=== PATIENT | female | born 1965 | race Caucasian/White ===

== ENCOUNTER 2017-09-28 06:06 | Emergency (ER) | payer OTHER ==
[~2017-09-28] VITALS: Ht 167.6 cm; Wt 108.1 kg
[~2017-09-28 06:06] MED LIST: ALL DAY ALLERGY10 M3 PO; ANTIVERT25 MG PO; ATARAX,VISTARIL25 MG PO; CATAPRES0.1 MG PO; CETIRIZINE HCL10 M2 PO; CLONIDINE HCL0.1 MG PO; DESYREL100 MG PO; FLOVENT 11120 INHALA IH; HYDROMORPHONE HC4 MG PO; LANSOPRAZOLE30 MG PO; LORAZEPAM2 MG PO; LOSARTAN POTAS100 MG PO; METFORMIN HCL500 M1 PO; MONTELUKAST SOD10 MG PO; OXYCONTIN15 MG PO; PREMARIN1.25 MG PO; PROAIR HFA8.5 GM IH; ROPINIROLE HCL2 MG PO; TIZANIDINE HCL4 MG PO; TRAZODONE HCL50 MG PO; VENLAFAXINE HCL50 MG PO
[2017-09-28] MEDS ORDERED: MOBIC7.5 MG PO (09:51)
[2017-09-28 10:22] VITALS: BP 130/62
== END 2017-09-28 10:25 | disposition home or self-care (01) ==
LOC: EME 06:06
DX: S32.009A Unspecified fracture of unspecified lumbar vertebra, initial encounter for closed fracture (principal); E11.9 Type 2 diabetes mellitus without complications; R60.0 Localized edema; W18.30XA Fall on same level, unspecified, initial encounter; Y92.002 Bathroom of unspecified non-institutional (private) residence as the place of occurrence of the external cause; M48.00 Spinal stenosis, site unspecified; J45.909 Unspecified asthma, uncomplicated; G47.33 Obstructive sleep apnea (adult) (pediatric); I10 Essential (primary) hypertension; E78.5 Hyperlipidemia, unspecified; F32.9 Major depressive disorder, single episode, unspecified; G89.29 Other chronic pain; Z79.84 Long term (current) use of oral hypoglycemic drugs; F17.200 Nicotine dependence, unspecified, uncomplicated; Z90.49 Acquired absence of other specified parts of digestive tract; Z88.5 Allergy status to narcotic agent; Z88.6 Allergy status to analgesic agent
CPT/HCPCS: 71046; 72100; 73522; 99281; 99285; J1885

== ENCOUNTER 2017-11-16 08:14 | Inpatient (IN) | payer OTHER ==
[~2017-11-16] VITALS: Ht 167.6 cm; Wt 112.4 kg
[2017-11-16] VITALS (9 sets, daily range): BP systolic 110–144; BP diastolic 59–85
[~2017-11-16 08:14] MED LIST changes: +EFFEXOR50 MG PO; +MOBIC7.5 MG PO; -VENLAFAXINE HCL50 MG PO
[2017-11-16] MEDS ORDERED: ACULAR 0.5100 DROP/5 RIGHT EYE (09:02)
[2017-11-16 09:22] LABS: CHLORIDE 104 mEq/L (99-109); POTASSIUM 3.8 mEq/L (3.7-5.4); SODIUM 140 mEq/L (136-147)
[2017-11-16 09:23] LABS: GLUCOSE 89 mg/dL (70-99)
[2017-11-16 09:27] LABS: CREATININE 0.8 mg/dL (0.6-1.3); GFR ESTIMATE (CALCULATED) > 59 mL/min/; HEMATOCRIT 18.5 % (36.0-46.0); MCH 16.8 PG (29.0-34.0); MCHC 25.9 G/DL (30.0-36.0); MCV 64.7 FL (83-99); NRBC (%) 0.7 /100 WBC (0-0); PLATELET COUNT 185 K/uL (156-360); RBC DIS.WIDTH-CV 20.3 % (11.8-14.6); RBC DIS.WIDTH-SD 46.1 % (39-53); RED BLOOD COUNT 2.86 M/uL (3.80-5.20); WHITE BLOOD COUNT 7.2 K/uL (4.1-10.2)
[2017-11-16 09:28] LABS: HEMOGLOBIN 4.8 G/DL (11.9-15.5); UREA NITROGEN (BUN) 9 mg/dL (9-23)
[2017-11-16] MEDS ORDERED: PREMARIN1.25 MG PO (12:15)
[2017-11-16] MEDS ORDERED: SEROQUEL100 MG PO (12:16)
[2017-11-16] MEDS ORDERED: NEURONTIN800 MG PO (12:16)
[2017-11-16] MEDS ORDERED: CYMBALTA20 MG PO (12:17)
[2017-11-16] MEDS ORDERED: BACLOFEN20 MG PO (12:17)
[2017-11-16] MEDS ORDERED: SINGULAIR10 MG PO (12:18)
[2017-11-16] MEDS ORDERED: ANAFRANIL25 M1 PO (12:19)
[2017-11-16] MEDS ORDERED: QVAR REDIHALE10.6 G1 IH (12:20)
[2017-11-16] MEDS ORDERED: ASPIRIN325 MG PO (12:20)
[2017-11-16] MEDS ORDERED: METHADONE 22 MG/1 ML PO (12:25)
[2017-11-16 21:23] LABS: HEMATOCRIT 23.9 % (36.0-46.0)
[2017-11-16 21:25] LABS: HEMOGLOBIN 6.4 G/DL (11.9-15.5); MCV 68.9 FL (83-99)
[2017-11-17] VITALS (13 sets, daily range): BP systolic 118–160; BP diastolic 65–91
[2017-11-17 06:10] LABS: HEMATOCRIT 24.4 % (36.0-46.0); MCH 18.8 PG (29.0-34.0); MCV 69.5 FL (83-99); NRBC (%) 0.9 /100 WBC (0-0); PLATELET COUNT 193 K/uL (156-360); RBC DIS.WIDTH-CV 22.7 % (11.8-14.6); RBC DIS.WIDTH-SD 55.4 % (39-53); WHITE BLOOD COUNT 5.5 K/uL (4.1-10.2)
[2017-11-17 06:16] LABS: RED BLOOD COUNT 3.51 M/uL (3.80-5.20)
[2017-11-17 06:17] LABS: HEMOGLOBIN 6.6 G/DL (11.9-15.5)
[2017-11-17 06:27] LABS: ALBUMIN 3.4 G/DL (3.2-4.8); ALKALINE PHOSPHATASE 50 IU/L (3-129); ALT (GPT) 10 IU/L (3-49); AST (GOT) 15 IU/L (2-34); CHLORIDE 107 MEQ/L (99-109); CREATININE 0.8 MG/DL (0.6-1.3); GFR ESTIMATE (CALCULATED) > 59 mL/min/; GLUCOSE 77 mg/dL (70-99); IRON 66 MCG/DL (35-150); POTASSIUM 3.8 MEQ/L (3.7-5.4); SODIUM 141 MEQ/L (136-147); TOTAL PROTEIN 6.8 G/DL (6.4-8.3); TRANSFERRIN (TIBC) 388.9 mg/dL (215-380); TRANSFERRIN SATUR. 17 % (20-55); UREA NITROGEN (BUN) 10 mg/dL (9-23)
[2017-11-17 18:08] LABS: HEMATOCRIT 28.1 % (36.0-46.0); MCV 71.3 FL (83-99)
[2017-11-18 00:40] LABS: BENZODIAZEPINES, URINE SCREEN Negative (200 ng/mL)
[2017-11-18 03:45] VITALS: BP 128/81
[2017-11-18 05:48] LABS: INTER. NORMALIZED RATIO 1.3
[2017-11-18 06:28] LABS: ALBUMIN 3.2 G/DL (3.2-4.8); ALKALINE PHOSPHATASE 48 IU/L (3-129); ALT (GPT) 8 IU/L (3-49); AST (GOT) 14 IU/L (2-34); BASOPHIL (%) 1.4 % (0-1); BASOPHIL COUNT 0.1 K/uL (0-0.1); CHLORIDE 107 MEQ/L (99-109); CREATININE 0.8 MG/DL (0.6-1.3); EOSINOPHIL (%) 5.8 % (0-5); EOSINOPHIL COUNT 0.4 K/uL (0-0.3); GFR ESTIMATE (CALCULATED) > 59 mL/min/; GLUCOSE 91 mg/dL (70-99); HEMATOCRIT 26.1 % (36.0-46.0); HEMOGLOBIN 7.4 G/DL (11.9-15.5); IMMATURE GRANULOCYTE (%) 0.9 % (0.0-0.7); LYMPHOCYTE (%) 17.2 % (15-42); LYMPHOCYTE COUNT 1.1 K/uL (1.0-2.8); MCH 20.2 PG (29.0-34.0); MCHC 28.4 G/DL (30.0-36.0); MCV 71.3 FL (83-99); MONOCYTE COUNT 0.7 K/uL (0-0.8); NEUTROPHIL (%) 63.7 % (45-76); NEUTROPHIL COUNT 4.2 K/uL (1.8-6.4); NRBC (%) 0.3 /100 WBC (0-0); PLATELET COUNT 185 K/uL (156-360); POTASSIUM 3.9 MEQ/L (3.7-5.4); RBC DIS.WIDTH-CV 24.3 % (11.8-14.6); RBC DIS.WIDTH-SD 60.7 % (39-53); RED BLOOD COUNT 3.66 M/uL (3.80-5.20); SODIUM 144 MEQ/L (136-147); UREA NITROGEN (BUN) 10 mg/dL (9-23); WHITE BLOOD COUNT 6.6 K/uL (4.1-10.2)
[2017-11-18 06:36] LABS: TOTAL BILIRUBIN 0.7 MG/DL (0.0-1.0)
[2017-11-18 07:11] LABS: BENZODIAZEPINES, URINE SCREEN Negative (200 ng/mL)
[2017-11-18 07:28] LABS: FERRITIN 7 NG/ML (10-291)
[2017-11-18 08:23] VITALS: BP 142/87
[2017-11-18 10:46] VITALS: BP 136/71
[2017-11-18 13:47] LABS: HEMATOCRIT 27.5 % (36.0-46.0); HEMOGLOBIN 7.8 G/DL (11.9-15.5); MCV 72.6 FL (83-99)
[2017-11-18 15:58] VITALS: BP 141/87
[2017-11-18 16:58] LABS: STOOL OCCULT BLD 1ST SPECIMEN NEGATIVE
[2017-11-18 20:22] VITALS: BP 131/86
[2017-11-18 23:09] VITALS: BP 130/71
[2017-11-19 03:26] VITALS: BP 159/83
[2017-11-19 06:02] LABS: HEMATOCRIT 27.7 % (36.0-46.0); HEMOGLOBIN 7.7 G/DL (11.9-15.5); MCH 20.2 PG (29.0-34.0); MCHC 27.8 G/DL (30.0-36.0); MCV 72.7 FL (83-99); NRBC (%) 0.3 /100 WBC (0-0); PLATELET COUNT 202 K/uL (156-360); RBC DIS.WIDTH-CV 25.7 % (11.8-14.6); RBC DIS.WIDTH-SD 65.2 % (39-53); RED BLOOD COUNT 3.81 M/uL (3.80-5.20); WHITE BLOOD COUNT 5.8 K/uL (4.1-10.2)
[2017-11-19 06:11] LABS: CHLORIDE 108 MEQ/L (99-109); CREATININE 0.7 MG/DL (0.6-1.3); GFR ESTIMATE (CALCULATED) > 59 mL/min/; GLUCOSE 72 mg/dL (70-99); POTASSIUM 3.8 MEQ/L (3.7-5.4); SODIUM 142 MEQ/L (136-147); UREA NITROGEN (BUN) 10 mg/dL (9-23)
[2017-11-19 07:09] LABS: BENZODIAZEPINES, URINE SCREEN Negative (200 ng/mL)
[2017-11-19 08:17] VITALS: BP 136/71
[2017-11-19 12:33] VITALS: BP 163/87
[2017-11-19 16:03] VITALS: BP 135/84
[2017-11-19 21:09] VITALS: BP 128/71
[2017-11-19 22:30] VITALS: BP 156/89
[2017-11-20 03:34] VITALS: BP 125/68
[2017-11-20 05:47] LABS: HEMOGLOBIN 7.7 G/DL (11.9-15.5); MCH 20.4 PG (29.0-34.0); MCHC 27.5 G/DL (30.0-36.0); MCV 74.1 FL (83-99); NRBC (%) 0.4 /100 WBC (0-0); PLATELET COUNT 215 K/uL (156-360); RBC DIS.WIDTH-CV 26.4 % (11.8-14.6); RBC DIS.WIDTH-SD 68.4 % (39-53); RED BLOOD COUNT 3.78 M/uL (3.80-5.20); WHITE BLOOD COUNT 5.4 K/uL (4.1-10.2)
[2017-11-20 06:41] LABS: BENZODIAZEPINES, URINE SCREEN Negative (200 ng/mL)
[2017-11-20 07:19] VITALS: BP 143/81
[2017-11-20 15:24] VITALS: BP 137/69
[2017-11-20 18:20] LABS: HEMATOCRIT 28.7 % (36.0-46.0); HEMOGLOBIN 7.8 G/DL (11.9-15.5); MCV 73.6 FL (83-99)
[2017-11-20 23:50] VITALS: BP 142/84
[2017-11-21 05:59] LABS: HEMATOCRIT 29.3 % (36.0-46.0); MCH 20.3 PG (29.0-34.0); MCHC 27.3 G/DL (30.0-36.0); MCV 74.4 FL (83-99); PLATELET COUNT 216 K/uL (156-360); RBC DIS.WIDTH-SD 69.6 % (39-53); RED BLOOD COUNT 3.94 M/uL (3.80-5.20); WHITE BLOOD COUNT 5.1 K/uL (4.1-10.2)
[2017-11-21 08:35] LABS: BENZODIAZEPINES, URINE SCREEN Negative (200 ng/mL)
[2017-11-21 08:55] VITALS: BP 133/82
[2017-11-21 16:40] VITALS: BP 138/80
[2017-11-22 00:54] VITALS: BP 128/72
[2017-11-22 06:34] LABS: HEMATOCRIT 29.1 % (36.0-46.0); HEMOGLOBIN 7.7 G/DL (11.9-15.5); MCHC 26.5 G/DL (30.0-36.0); MCV 75.6 FL (83-99); NRBC (%) 0.6 /100 WBC (0-0); PLATELET COUNT 197 K/uL (156-360); RBC DIS.WIDTH-CV 27.1 % (11.8-14.6); RBC DIS.WIDTH-SD 71.1 % (39-53); RED BLOOD COUNT 3.85 M/uL (3.80-5.20)
[2017-11-22 07:34] VITALS: BP 130/70
[2017-11-22 07:40] LABS: BENZODIAZEPINES, URINE SCREEN Negative (200 ng/mL)
[2017-11-22] MEDS ORDERED: CIPROFLOXACIN H10 ML RIGHT EYE (11:30)
[2017-11-22] MEDS ORDERED: BACTROBAN OINTM22 GM TP (11:30)
[2017-11-22] MEDS ORDERED: LIDOCAINE PAIN1 EACH TP (11:30)
[2017-11-22] MEDS ORDERED: CEPHALEXIN500 MG PO (11:30)
== END 2017-11-22 14:15 | disposition home or self-care (01) | DRG 812 ==
LOC: EME 08:14 → EDOF 10:59 → 5SOUTH 10:59 → 4EAST 10:59 → ENRESERV 11:11 → 4EAST 12:34 → ENRESERV 11-19 10:37 → 5SOUTH 11-19 12:16
PROVIDERS: Hospitalist; Internal Medicine; Internal Medicine Gastroenterology; Physician Assistant; Physician Assistant Medical; Student in an Organized Health Care Education/Training Program
PROC: 30233N1 Transfusion of Nonautologous Red Blood Cells into Peripheral Vein, Percutaneous Approach (ICD-10-PCS; principal; 2017-11-16)
DX: D50.9 Iron deficiency anemia, unspecified (principal); L03.115 Cellulitis of right lower limb; L03.116 Cellulitis of left lower limb; B95.61 Methicillin susceptible Staphylococcus aureus infection as the cause of diseases classified elsewhere; E11.622 Type 2 diabetes mellitus with other skin ulcer; L97.919 Non-pressure chronic ulcer of unspecified part of right lower leg with unspecified severity; L97.929 Non-pressure chronic ulcer of unspecified part of left lower leg with unspecified severity; S32.048D Other fracture of fourth lumbar vertebra, subsequent encounter for fracture with routine healing; W19.XXXD Unspecified fall, subsequent encounter; L01.00 Impetigo, unspecified; I89.0 Lymphedema, not elsewhere classified; H10.89 Other conjunctivitis; E66.9 Obesity, unspecified; Z68.41 Body mass index [BMI] 40.0-44.9, adult; I11.9 Hypertensive heart disease without heart failure; M48.00 Spinal stenosis, site unspecified; R29.6 Repeated falls; G89.29 Other chronic pain; R10.31 Right lower quadrant pain; R10.32 Left lower quadrant pain; M54.2 Cervicalgia; J44.9 Chronic obstructive pulmonary disease, unspecified; E78.5 Hyperlipidemia, unspecified; G47.33 Obstructive sleep apnea (adult) (pediatric); F17.200 Nicotine dependence, unspecified, uncomplicated; F14.129 Cocaine abuse with intoxication, unspecified; Z79.82 Long term (current) use of aspirin; Z79.84 Long term (current) use of oral hypoglycemic drugs; Z79.899 Other long term (current) drug therapy
CPT/HCPCS: 71045; 74177; 80048; 80053; 80306 90; 82272; 82728; 82948; 83540; 84466; 85014; 85018; 85025; 85027; 85610; 86850; 86900; 86901; 86920; 87040; 87070; 87075; 87076; 87077; 87086; 87147; 87186; 87205; 99202; 99281; 99284; J0690; J1756; J1815; J1940; J7050; P9016